=== PATIENT | female | born 1955 ===

== ENCOUNTER 2018-02-18 12:15 | Inpatient (IN) | payer OTHER ==
[~2018-02-18] VITALS: Ht 160 cm; Wt 99.8 kg
[~2018-02-18 12:15] MED LIST: AMBIEN10 MG PO; ATIVAN2 M1 PO; CATAFLAM50 MG PO; Colace 100MG PO; GABAPENTIN600 MG PO; GLUCOTROL10 MG PO; HYZAAR 100-121 UDTAB PO; NEURONTIN PO; PERCOCET 5/3251 TAB PO; PROTONIX40 MG PO; SYNTHROID150 MCG PO; TAMOXIFEN CITRA20 MG PO; WELLBUTRIN XL300 MG PO
[2018-02-18] MEDS ORDERED: PERCOCET PO (15:29)
[2018-02-18] MEDS ORDERED: PRAVACHOL80 MG PO (15:29)
[2018-02-18] MEDS ORDERED: SINGULAIR10 MG PO (15:29)
[2018-02-18] MEDS ORDERED: AVALIDE 300-121 EACH PO (15:30)
[2018-02-27] MEDS ORDERED: GABAPENTIN800 MG PO (09:51)
[2018-02-27] MEDS ORDERED: DOCUSATE SODIU100 MG PO (09:52)
[2018-02-27] MEDS ORDERED: AMOX-CLAV 875-1 EACH PO (09:54)
[2018-02-27] MEDS ORDERED: CLONAZEPAM1 MG PO (09:55)
[2018-02-27] MEDS ORDERED: PERCOCET 5-3251 EACH PO (09:55)
== END 2018-02-27 19:11 | DRG 455 ==
LOC: O/R 02-26 05:00 → PED 02-26 05:00 → SURH 02-26 10:00 → PED 02-26 13:40
PROVIDERS: Orthopaedic Surgery Orthopaedic Surgery of the Spine
PROC: 0SG1071 Fusion of 2 or more Lumbar Vertebral Joints with Autologous Tissue Substitute, Posterior Approach, Posterior Column, Open Approach (ICD-10-PCS; 2018-02-26)
PROC: 0ST20ZZ Resection of Lumbar Vertebral Disc, Open Approach (ICD-10-PCS; 2018-02-26)
PROC: 0SG10AJ Fusion of 2 or more Lumbar Vertebral Joints with Interbody Fusion Device, Posterior Approach, Anterior Column, Open Approach (ICD-10-PCS; 2018-02-26)
PROC: 07DS3ZZ Extraction of Vertebral Bone Marrow, Percutaneous Approach (ICD-10-PCS; 2018-02-26)
PROC: 3E0F7GC Introduction of Other Therapeutic Substance into Respiratory Tract, Via Natural or Artificial Opening (ICD-10-PCS; 2018-02-26)
PROC: 0SG10A0 Fusion of 2 or more Lumbar Vertebral Joints with Interbody Fusion Device, Anterior Approach, Anterior Column, Open Approach (ICD-10-PCS; principal; 2018-02-26 10:00)
DX: M47.26 Other spondylosis with radiculopathy, lumbar region (principal); M48.061 Spinal stenosis, lumbar region without neurogenic claudication; M43.16 Spondylolisthesis, lumbar region; M51.16 Intervertebral disc disorders with radiculopathy, lumbar region; E03.8 Other specified hypothyroidism; I10 Essential (primary) hypertension; E11.9 Type 2 diabetes mellitus without complications; F32.89 Other specified depressive episodes; M79.7 Fibromyalgia; J45.998 Other asthma

== ENCOUNTER 2018-11-19 11:15 | Inpatient (IN) | payer OTHER ==
[~2018-11-19] VITALS: Ht 160 cm; Wt 107.0 kg
[~2018-11-19 11:15] MED LIST changes: +AMOX-CLAV 875-1 EACH PO; +AVALIDE 300-121 EACH PO; +CLONAZEPAM1 MG PO; +DOCUSATE SODIU100 MG PO; +GABAPENTIN800 MG PO; +PERCOCET 5-3251 EACH PO; +PERCOCET PO; +PRAVACHOL80 MG PO; +SINGULAIR10 MG PO
[2018-12-23] MEDS ORDERED: CLONAZEPAM2 MG PO (09:58)
[2018-12-23] MEDS ORDERED: WELLBUTRIN SR150 MG PO (09:58)
[2018-12-30] MEDS ORDERED: AMOX-CLAV 875-1 EACH PO (09:56)
[2018-12-30] MEDS ORDERED: CLONAZEPAM1 MG PO (09:56)
[2018-12-30] MEDS ORDERED: PERCOCET 5-3251 EACH PO (09:56)
[2018-12-30] MEDS ORDERED: COLACE100 MG PO (09:56)
[2018-12-30] MEDS ORDERED: NEURONTIN800 MG PO (09:56)
== END 2019-01-02 11:22 | DRG 520 ==
LOC: ADM 11:15 → EDSTATUS 12-23 11:00 → SURG 12-30 05:06 → O/R 12-30 05:06 → SURH 12-30 07:00 → SURG 12-30 10:29 → SURH 12-30 11:00 → SURG 12-31 10:32
PROVIDERS: ADMIT Orthopaedic Surgery Orthopaedic Surgery of the Spine
PROC: 0SB20ZZ Excision of Lumbar Vertebral Disc, Open Approach (ICD-10-PCS; 2018-12-30)
PROC: 00NY0ZZ Release Lumbar Spinal Cord, Open Approach (ICD-10-PCS; principal; 2018-12-30 07:00)
DX: M43.16 Spondylolisthesis, lumbar region (principal); M51.36 Other intervertebral disc degeneration, lumbar region; M48.061 Spinal stenosis, lumbar region without neurogenic claudication; E11.9 Type 2 diabetes mellitus without complications; Z79.4 Long term (current) use of insulin; E03.8 Other specified hypothyroidism; M79.7 Fibromyalgia; E66.09 Other obesity due to excess calories